=== PATIENT | female | born 1950 | race Caucasian/White ===

== ENCOUNTER → 2018-03-01 | Outpatient (CLI) | payer MEDICARE ==
--- NOTE | 2018-03-01 11:49 | FL ---
EXAMINATION TYPE: FL barium swallow w video DATE OF EXAM: 03/01/2018 MODIFIED SWALLOW / DEGLUTITION STUDY CLINICAL HISTORY: Dysphagia. TECHNIQUE: Deglutition study is performed utilizing thin liquid barium, honey and nectar thick liqui d barium, barium thick applesauce, and barium coated cracker. 0 images saved as the exam was video re corded. 52 seconds of fluoroscopy time was utilized. COMPARISON: None. FINDINGS: The oral and pharyngeal phases show satisfactory initiation and propagation with all modali ties tested. Normal mastication is seen with solid modalities tested. Transient penetration is seen with the thin liquid barium consistency when the patient utilizes a straw only with multiple continuo us swallows. Otherwise there is no evidence of penetration or aspiration with any modality tested. N o significant pharyngeal residue was appreciated. IMPRESSION: Transient penetration with the usage of a straw and multiple contiguous swallows, otherwi se unremarkable deglutition study. Please refer to speech therapist notes for further details if nec essary.
== END ==
LOC: RADFLMAIN 10:56
PROVIDERS: ATTEND Otolaryngology
DX: R13.10 Dysphagia, unspecified (principal)
CPT/HCPCS: 74230

== ENCOUNTER → 2021-01-14 | Outpatient (CLI) | payer MEDICARE ==
--- NOTE | 2021-01-14 16:19 | CT ---
EXAMINATION TYPE: CT chest w con DATE OF EXAM: 01/14/2021 COMPARISON: Radiograph 12/07/2020 HISTORY: 70-year-old female R91.8, Previous abnormal exam/lung horton. Hx COPD. TECHNIQUE: Contiguous axial scanning of the chest after the administration of 100 mL of Isovue 300. Coronal/sagittal reconstructions performed. CT DLP: 246.10mGycm. Automatic exposure control utilized for a dose reduction. FINDINGS: There is a heterogeneous 1.9 cm left thyroid isthmic nodule which warrants thyroid ultrasound to furt her evaluate. Suspect a 1.4 cm cystic nodule of the left lobe of the thyroid gland. Tiny 6 mm nodule 6:00 right breast, axial image 28 can be correlated with patient's routine mammogram s. Heart normal size without pericardial effusion. Aorta normal caliber with mild atherosclerotic arch calcifications and conventional arch vessel branc meredith anatomy. Mildly enlarged caliber to the main right and left pulmonary arteries measuring up to 2.6 cm. Calcified lower right paratracheal lymph node compatible with prior granulomatous disease. No thoraci c lymphadenopathy by CT size criteria. There is advanced centrilobular emphysema. Strandy bibasilar scarring/atelectasis is noted without co nsolidation or pleural effusion. Visualized upper abdomen shows slight increased attenuation of the liver that may represent mild fatt y infiltration. Benign 1.4 cm mid hepatic cyst. Bones: Scattered small endplate Schmorl's nodes mid to lower thoracic spine and upper lumbar spine. IMPRESSION: 1. COPD with advanced emphysema and pulmonary arterial hypertension. 2. Basilar opacities have strandy configurations suggesting areas of atelectasis and/or scarring. 3. Dedicated thyroid ultrasound recommended to assess a 1.9 cm left thyroid isthmic nodule and determ ine the need for FNA. 4. Tiny 6 mm nodule within the 6:00 position of the right breast is nonspecific. It routine screening mammograms are not being performed, diagnostic mammogram is recommended.
== END | disposition home or self-care (01) ==
LOC: RADCTMAIN 13:33
PROVIDERS: ATTEND Internal Medicine Critical Care Medicine
DX: J43.9 Emphysema, unspecified (principal); I27.21 Secondary pulmonary arterial hypertension; R91.8 Other nonspecific abnormal finding of lung field; N63.15 Unspecified lump in the right breast, overlapping quadrants
CPT/HCPCS: 82565; 84520; 71260; 36415; Q9967

== ENCOUNTER → 2021-01-23 | Outpatient (CLI) | payer MEDICARE, OTHER ==
[2021-01-23 17:22] LABS: ABG Base Excess 8.3 mmol/L; ABG HCO3 33 mmol/L (21-25); ABG Oxygen Saturation 85.9 % (94-97); ABG PCO2 52 mmHg (35-45); ABG PH 7.41 (7.35-7.45); ABG TCO2 35 mmol/L (19-24); Allen Test Performed? Yes
[2021-01-23 17:24] LABS: ABG PO2 48 mmHg (83-108)
== END | disposition home or self-care (01) ==
LOC: LABWHC1 16:27
PROVIDERS: ATTEND Internal Medicine Critical Care Medicine
DX: J44.9 Chronic obstructive pulmonary disease, unspecified (principal)
CPT/HCPCS: 36600; 82805

== ENCOUNTER → 2021-02-18 | Outpatient (CLI) | payer MEDICARE, OTHER ==
--- NOTE | 2021-02-18 15:03 | US ---
EXAMINATION TYPE: US thyroid st tissue head/neck DATE OF EXAM: 02/18/2021 COMPARISON: CT chest 01/14/2021 CLINICAL HISTORY: 70-year-old female R22.0 swelling/mass/palpable abnormality head/neck. Left thyroid nodule seen on recent CT GLAND SIZE: Right Lobe: 5.4 x 1.8 x 1.8 cm Overall Parenchyma: heterogenous Left Lobe: 4.7 x 1.7 x 1.5 cm Overall Parenchyma: heterogeneous Isthmus Thickness: 0.3 cm NODULES RIGHT: # of nodules measured on right: 0 LEFT: # of nodules measured on left: 2 1. 2.0 X 1.3 x 2.2 cm, lower medial, mixed cystic and solid, hypoechoic nodule, which is wider than tall, with smooth margins, without echogenic foci. Prior size: no previous 2. 1.9 X 1.3 x 1.4 cm, lower lateral, cystic or almost completely cystic, anechoic nodule, which i s wider than tall, with smooth margins, without echogenic foci. Prior size: no previous ISTHMUS: # of nodules measured in the isthmus: 0 Bilateral neck scanned, no evidence of lymphadenopathy. Multiple bilateral nodules with largest described above. IMPRESSION: 1. A mixed solid cystic TR3 nodule medial left lobe measuring up to 2.2 cm. Follow-up is recommended. FNA should be performed if the nodule reaches 2.5 cm. 2. There is a second nodule measuring 1.9 cm on the left, laterally, which is primarily cystic. Some mild internal complexity is present with thin septations.
== END | disposition home or self-care (01) ==
LOC: RADUSWWP 13:47
PROVIDERS: ATTEND Internal Medicine Critical Care Medicine
DX: E04.2 Nontoxic multinodular goiter (principal)
CPT/HCPCS: 76536

== ENCOUNTER → 2021-05-03 | Outpatient (CLI) | payer MEDICARE, OTHER ==
--- NOTE | 2021-05-03 13:45 | US ---
EXAMINATION TYPE: US thyroid st tissue head/neck DATE OF EXAM: 05/03/2021 COMPARISON: 02/18/21 CLINICAL HISTORY: E04.1 Thyroid Nodule. GLAND SIZE: Right Lobe: 5.6x2.2x cm Overall Parenchyma: homogenous Left Lobe: 5.8x1.9x1.6 cm Overall Parenchyma: homogeneous Isthmus Thickness: 0.6 cm NODULES RIGHT: # of nodules measured on right: 0 LEFT: # of nodules measured on left: 4 1. 1.2 X 1.0 x 0.7 cm, upper mid, solid or almost completely solid, hypoechoic nodule, which is ranulfo ler than wide, with smooth margins, with echogenic foci. Prior size: None. 2. 0.7 X 0.5 x 0.6 cm, mid mid, solid or almost completely solid, hypoechoic nodule, which is wide r than tall, with ill-defined margins, without echogenic foci. Prior size: None. 3. 2.1 X 1.1 x 1.4 cm, lower lateral, cystic or almost completely cystic, anechoic nodule, which is wider than tall, with smooth margins, with echogenic foci. Prior size: 1.9 x 1.3 x .14 cm 4. 2.6 X 1.3 x 2.0 cm, lower medial, mixed cystic and solid, isoechoic nodule, which is wider than tall, with smooth margins, with echogenic foci. Prior size: 2.2 x 1.3 x 1.3 cm ISTHMUS: Measures 0.6 cm Bilateral neck scanned, no evidence of lymphadenopathy. Multiple small nodules <5mm ? Parathyroid cyst posterior right thyroid. 2.7x0.8x1.2cm IMPRESSION: Multinodular thyroid changes with incremental increase in size of multiple nodules as discussed above . 1.2 cm Left thyroid nodule has the highest TI-RADS LEVEL 2017 ACR TI-RADS LEVEL: TI-RADS 5 - Highly Suspicious: Follow if > 0.5 cm, FNA if > 1.0 cm *Highest TI-RADS level nodule reported
== END | disposition home or self-care (01) ==
LOC: RADUSWWP 10:07
PROVIDERS: ATTEND Internal Medicine Critical Care Medicine
DX: E04.2 Nontoxic multinodular goiter (principal)
CPT/HCPCS: 76536

== ENCOUNTER → 2021-05-14 | Outpatient (CLI) | payer MEDICARE, OTHER ==
--- NOTE | 2021-05-14 10:03 | CT ---
EXAMINATION TYPE: CT chest wo con DATE OF EXAM: 05/14/2021 COMPARISON: CT chest 01/14/2021 HISTORY: COPD CT DLP: 609.70 mGycm. Automated Exposure Control for Dose Reduction was Utilized. TECHNIQUE: CT scan of the thorax is performed without IV contrast. FINDINGS: LUNGS: The lungs are stable, there is extensive centrilobular emphysematous change within the lungs. There may be some atelectatic change along anterior aspect of the right middle lobe, axial image #[id number] 8 There is no pleural effusion or pneumothorax seen. The tracheobronchial tree is patent. MEDIASTINUM: Lack of IV contrast is noted to limit evaluation for mediastinal and especially hilar ad enopathy. There are no definitive greater than 1 cm hilar or mediastinal lymph nodes. No cardiomega ly or pericardial effusion is seen. OTHER: Low dense focus within the right lobe of the liver is stable and statistically is likely to re present a cyst. No other significant interval changes IMPRESSION: Findings similar to prior exam. Extensive centrilobular emphysematous change. Noncontrast exam.
== END | disposition home or self-care (01) ==
LOC: RADCTMAIN 08:05
PROVIDERS: ATTEND Internal Medicine Critical Care Medicine
DX: J44.9 Chronic obstructive pulmonary disease, unspecified (principal)
CPT/HCPCS: 71250

== ENCOUNTER → 2022-03-03 | Outpatient (CLI) | payer MEDICARE | END | disposition home or self-care (01) | LOC: RADUSWWP 16:16 | PROVIDERS: ATTEND Internal Medicine Endocrinology, Diabetes & Metabolism | DX: Z53.9 Procedure and treatment not carried out, unspecified reason (principal) ==

== ENCOUNTER → 2022-03-07 | Outpatient (CLI) | payer MEDICARE ==
[2022-03-07 14:08] LABS: INR 0.9 (<1.2); Partial Thromboplastin Time 24.8 sec (22.0-30.0); Prothrombin Time 10.4 sec (9.0-12.0)
--- NOTE | 2022-03-07 15:27 | US ---
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 GLAND SIZE: Right Lobe: 5.0 x 2.0 x 1.5 cm Overall Parenchyma: homogenous Left Lobe: 5.1 x 1.7 x 1.5 cm Overall Parenchyma: homogeneous Isthmus Thickness: 0.3 cm NODULES RIGHT: # of nodules measured on right: 2 1. 2.7 X 0.7 x 1.8 cm, upper lateral, cystic or almost completely cystic, anechoic nodule, which is wider than tall, with smooth margins, without echogenic foci. Prior size: 2.7 x 0.8 x 1.2 cm 2. 0.5 X 0.3 x 0.5 cm, upper mid, solid or almost completely solid, hypoechoic nodule, which is wid er than tall, with smooth margins, without echogenic foci. Prior size: 0.4 x 0.3 x 0.4 cm LEFT: # of nodules measured on left: 2 1. 1.3 X 1.0 x 0.9 cm, upper mid, solid or almost completely solid, very hypoechoic nodule, which i s wider than tall, with smooth margins, without echogenic foci. Prior size: 1.2 x 1.0 x 0.7 cm 2. 1.6 X 0.9 x 1.1 cm, lower mid, cystic or almost completely cystic, anechoic nodule, which is wi emi than tall, with smooth margins, without echogenic foci. Prior size: 2.1 x 1.1 x 1.4 cm ISTHMUS: # of nodules measured in the isthmus: 1 1. 1.7 X 1.2 x 1.7 cm mixed cystic and solid, hypoechoic nodule, which is wider than tall, with smo oth margins, without echogenic foci. Prior size: 2.6 x 1.3 x 1.9 cm Bilateral neck scanned, no evidence of lymphadenopathy. There are multiple other subcenter nodules noted bilaterally. IMPRESSION: Nonspecific thyroid nodularity as noted above.
[2022-03-07 20:58] LABS: Basophils # (A) 0.06 X 10*3/uL (0.00-0.10); Basophils % (A) 0.9 %; Eosinophils # (A) 0.26 X 10*3/uL (0.04-0.35); Eosinophils % (A) 3.9 %; HCT 44.3 % (37.2-46.3); Immature Grans, Automated 0.3 %; Immature Platelet Fraction 33.9 % (1.1-6.1); Lymphocytes # (A) 1.17 X 10*3/uL (0.90-5.00); Lymphocytes % (A) 17.5 %; MCH 29.6 pg (27.0-32.0); MCHC 31.6 g/dL (32.0-37.0); MCV 93.7 fL (80.0-97.0); Monocytes # (A) 0.62 X 10*3/uL (0.20-1.00); Monocytes % (A) 9.3 %; NRBC Per 100 WBC 0 /100 WBCS (0.0-0.0); Neutrophils # (A) 4.57 X 10*3/uL (1.80-7.70); Neutrophils % (A) 68.1 %; Platelet Count 31 X 10*3/uL (140-440); RBC 4.73 X 10*6/uL (4.10-5.20); RBC Morphology NORMAL; RDW 13.3 % (11.5-14.5)
== END | disposition home or self-care (01) ==
LOC: LABWHC1 13:22
PROVIDERS: ATTEND Internal Medicine Endocrinology, Diabetes & Metabolism
DX: E04.2 Nontoxic multinodular goiter (principal); T14.8XXA Other injury of unspecified body region, initial encounter; Y99.9 Unspecified external cause status
CPT/HCPCS: 36415; 76536; 84443; 85025; 85610; 85730

== ENCOUNTER → 2023-03-11 | Outpatient (CLI) | payer MEDICARE ==
--- NOTE | 2023-03-11 14:43 | CTL ---
EXAMINATION TYPE: CT Low Dose Lung DATE OF EXAM ORDERED: 03/11/2023 COMPARISON: 05/14/2021 HISTORY: . Low Dose CT Lung Screening CT DLP: 84.[address] CTDI: 2.3 mGy IV CONTRAST USED: None. SCREENING VISIT: Second COMPARISON: None. TECHNIQUE: Low dose computed tomography scan was performed through the chest at 1 millimeter thick se ctions and reconstructed images in the coronal plane at [address] DIAGNOSTIC QUALITY: Satisfactory FINDINGS: LUNG NODULES: Stable nodular density right upper lobe laterally image 161 sequence 4 measuring 5.5 mm . LUNGS: COPD: Severity: Severe. There is severe centrilobular emphysema noted greatest in the mid and upper lung horton. Fibrosis: Severity:None Lymph nodes: None Other findings: None RIGHT PLEURAL SPACE: Effusion: None Calcification: None Thickening: None Pneumothorax: None LEFT PLEURAL SPACE: Effusion: None Calcification: None Thickening: None Pneumothorax: None HEART: Heart Size: Mildly enlarged Coronary calcification: Mild Pericardial effusion: None OTHER FINDINGS: Upper abdomen: No significant abnormality Bony thorax: Degenerative changes Supraclavicular region: No significant abnormalityOther: No significant abnormalityI IMPRESSION: 1. Stable nodular density right upper lobe. 2. No new nodules. 3. Centrilobular emphysema. FOLLOW UP CT CHEST RECOMMENDATION: Follow-up screening in one year CT LUNG RAD: LUNG RAD CATEGORY 2 benign appearance and/or behavior.
== END | disposition home or self-care (01) ==
LOC: RADCTMAIN 14:02
PROVIDERS: ATTEND Internal Medicine Critical Care Medicine
DX: Z12.2 Encounter for screening for malignant neoplasm of respiratory organs (principal); J43.2 Centrilobular emphysema; R91.1 Solitary pulmonary nodule; Z87.891 Personal history of nicotine dependence
CPT/HCPCS: 71271

== ENCOUNTER → 2023-05-01 | Outpatient (CLI) | payer MEDICARE ==
[2023-05-01 21:12] LABS: T4, Free (Free Thyroxine) 1.06 ng/dL (0.80-1.80)
== END | disposition home or self-care (01) ==
LOC: LABWHC1 14:09
PROVIDERS: ATTEND Internal Medicine Endocrinology, Diabetes & Metabolism
DX: E04.2 Nontoxic multinodular goiter (principal)
CPT/HCPCS: 36415; 84439; 84443

== ENCOUNTER → 2023-10-01 | Outpatient (CLI) | payer MEDICARE ==
--- NOTE | 2023-10-01 14:43 | US ---
EXAMINATION TYPE: US thyroid st tissue head/neck DATE OF EXAM: 10/01/2023 COMPARISON: US CLINICAL INDICATION: Female, 73 years old with history of E04.2 NONTOXIC MULTINODULAR GOITER; Goiter, F/U, pt also states palpable lump right neck just below ear x 2 weeks GLAND SIZE: Right Lobe: 5.4 x 2.3 x 2.0 cm Overall Parenchyma: heterogenous Left Lobe: 5.3 x 1.8 x 1.5 cm Overall Parenchyma: heterogenous Isthmus Thickness: 0.4 cm NODULES RIGHT: # of nodules measured on right: 2 1. 2.9 X 1.1 x 1.4 cm, mid, cystic or almost completely cystic, anechoic nodule, which is wider kayley n tall, with smooth margins, without echogenic foci. Prior size: 2.8 x 0.9 x 2.0 cm 2. 0.6 X 0.6 x 0.6 cm, mid, solid or almost completely solid, hypoechoic nodule, which is wider kayley n tall, with smooth margins, without echogenic foci. Prior size: 0.6 x 0.6 x 0.6 cm LEFT: # of nodules measured on left: 3 1. 1.2 X 1.1 x 0.8 cm, upper , solid or almost completely solid, hypoechoic nodule, which is wider than tall, with smooth margins, with echogenic foci. Prior size: 1.5 x 1.0 x 1.0 cm 2. 1.5 X 0.8 x 1.0 cm, lower, cystic or almost completely cystic, anechoic nodule, which is wider than tall, with smooth margins, without echogenic foci. Prior size: 1.5 x 0.8 x 1.0 cm 3. 0.6 X 0.4 x 0.6 cm, mid, solid or almost completely solid, hypoechoic nodule, which is wider kayley n tall, with smooth margins, without echogenic foci. Prior size: 0.5 cm ISTHMUS: # of nodules measured in the isthmus: 1 1. 1.5 X 0.9 x 1.6 cm solid or almost completely solid, hypoechoic nodule, which is wider than tall , with smooth margins, without echogenic foci. Prior size: 1.5 x 0.9 x 1.8 cm Bilateral neck scanned, no evidence of lymphadenopathy. Stable nodules bilaterally. In area of pt's p alpable lump near right parotid gland there is a hypoechoic, solid, vascular lesion= 2.3 x 1.6 x 2.3 cm IMPRESSION: Moderately Suspicious: FNA if ? 1.5 cm; Follow if ? 1 cm at 1, 2, 3, and 5 y 2017 ACR TI-RADS LEVEL: TR4 *Highest TI-RADS level nodule reported
== END | disposition home or self-care (01) ==
LOC: RADUSWWP 13:46
PROVIDERS: ATTEND Internal Medicine Endocrinology, Diabetes & Metabolism
DX: E04.2 Nontoxic multinodular goiter (principal)
CPT/HCPCS: 76536

== ENCOUNTER → 2024-02-09 | Outpatient (CLI) | payer MEDICARE ==
[2024-02-09 12:35] LABS: African American GFR (CKD) 89 (>60 ml/min/1.73 sqM); Blood Urea Nitrogen 19 mg/dL (7-17); Non-African American GFR(CKD) 77 (>60 ml/min/1.73 sqM)
--- NOTE | 2024-02-09 13:18 | CT ---
EXAMINATION TYPE: CT soft tissue neck w con DATE OF EXAM: 02/09/2024 COMPARISON: None HISTORY: lump/ mass on rt side of neck (marked by a BB). CT DLP: 360.20 mGycm CONTRAST: CT scan of the neck is performed with IV Contrast, patient injected with 100ml mL of Isovue 300. Contrast enhanced CT of the neck was performed from the skull base through the lung apices. AIRWAY: The supraglottic, glottic, and subglottic portions of the airway appear patent and free of mass. SALIVARY GLANDS: Solitary well-circumscribed mass of the right parotid gland at the site of clinical concern within the deep parotid gland measuring 3.0 x 2.5 cm. Differential diagnostic possibilities i nclude pleomorphic adenoma, Wharthin tumor as well as other benign lesions. Malignant mucoid epidermo id carcinoma is not excluded. Correlate clinically. The left parotid gland is free of mass lesion. Th e submandibular glands are free of mass or inflammatory process. THYROID GLAND: Subcentimeter cystic nodules noted. LYMPH NODES: No adenopathy seen greater than 1cm. LUNG APICES: No nodule or mass is seen. OTHER: Vascular structures are patent. No significant degenerative change of the cervical spine. N o abscess seen. IMPRESSION: Solitary well-circumscribed mass of the right parotid gland at the site of clinical concern within th e deep parotid gland measuring 3.0 x 2.5 cm. Differential diagnostic possibilities included above.
== END | disposition home or self-care (01) ==
LOC: RADCTMAIN 11:35
PROVIDERS: ATTEND Otolaryngology
DX: R22.1 Localized swelling, mass and lump, neck (principal)
CPT/HCPCS: 82565; 84520; 70491; 36415; Q9967

== ENCOUNTER 2024-02-26 08:55 | Day surgery (SDC) | payer MEDICARE ==
[2024-02-26 09:26] VITALS: RESP 18; TEMP 97.7
--- NOTE | 2024-02-26 10:20 | US ---
EXAMINATION TYPE: US biopsy parotid gland DATE OF EXAM: 02/26/2024 10:01 AM CLINICAL INDICATION:Female, 73 years old with history of R22.1 LOCALIZED SWELLING, MASS AND LUMP, NEC K; , COMPARISON: 02/09/2024 ATTENDING: Dr. Stephen Moise PROCEDURE: Informed consent was obtained. The risks and benefits of the procedure were discussed with the patien t. The site was marked. Timeout procedure was performed Ultrasound imaging demonstrates right parotid mass The patient was prepped, draped in the usual sterile fashion, and locally anesthetized with 1% lidoca ine. 2 x 18-gauge core needle biopsies were obtained.. Samples were sent to the pathology department for further analysis. Patient tolerated the procedure without incident and was sent home in stable c ondition. IMPRESSION: Successful ultrasound guided core biopsy of the right parotid mass.
[2024-02-26 10:57] VITALS: BP 101/52; PULSE 77
== END 2024-02-26 10:30 | disposition home or self-care (01) ==
LOC: RADPROMAIN 08:55
PROVIDERS: ATTEND Otolaryngology
DX: R22.1 Localized swelling, mass and lump, neck (principal)
CPT/HCPCS: 42400; 76942; 88305

== ENCOUNTER → 2024-04-11 | Outpatient (CLI) | payer MEDICARE ==
--- NOTE | 2024-04-12 12:21 | CTL ---
EXAMINATION TYPE: CT Low Dose Lung DATE OF EXAM ORDERED: 04/11/2024 HISTORY: 73-year-old female former smoker with 50 pack-year history. Z12.2 LUNG CA SCR Z87.891 FORMER SMOKER. Lung cancer screening CT DLP: 95.[address] CTDI: 2.6 mGy Automated exposure control for dose reduction was used. SCREENING VISIT: Annual follow-up COMPARISON: 03/11/2023 TECHNIQUE: Low dose computed tomography scan was performed through the chest at 1 mm thick sections a nd reconstructed images in multiple planes at 1 mm and [address] DIAGNOSTIC QUALITY: Satisfactory FINDINGS: The heart is normal size without pericardial effusion. Aorta normal caliber with mild atherosclerotic arch calcifications and conventional petrosal branchin g anatomy. A few nonenlarged mediastinal lymph nodes are present. No thoracic lymphadenopathy by CT size criteri a. Borderline caliber main right and left pulmonary arteries measuring up to 2.5 cm may reflect underlyi ng pulmonary hypertension. There is scattered mosaic attenuation with moderate to advanced upper lung predominant emphysema. Ext ensive new airspace disease and patchy opacity throughout the right midlung within the upper lobe. Th ere is seen to be some underlying centrally located bronchial stents. Possible new or increased endol uminal opacification within the lateral and posterior segment stents, axial image 143 and 148. Tiny 2 mm lateral left midlung pulmonary nodule, axial image 133 is unchanged. Otherwise, no pleural effusion. Visualized upper abdomen shows a tiny hiatal hernia and a similar 1.3 cm cyst anterior mid liver. Bones: Scattered mild degenerative disc disease throughout the thoracic spine. IMPRESSION: 1. LungRADS 4a, suspicious; suggestion of previous endobronchial stents at the right hilum with new e ndobronchial opacification centrally at the right lung particularly involving the posterior and later al stents. Findings may be due to mucoid impaction. Further bronchoscopic assessment as clinically in dicated. Otherwise, three-month follow-up low-dose CT chest to assess for clearance. 2. There is extensive airspace disease throughout the right midlung, likely postobstructive pneumonia . Clinically correlate. 3. COPD with moderate to advanced emphysema. CT LUNG RAD AND CT CHEST RECOMMENDATION: Lung-Rad 4A Suspicious: Follow-up 3 month LDCT or PET/CT may be used when there is a > 8 mm solid component. S Modifier (other clinically significant findings): None [facility], , 04/12/2024 12:18 PM
== END | disposition home or self-care (01) ==
LOC: RADCTMAIN 12:10
PROVIDERS: ATTEND Internal Medicine Critical Care Medicine
DX: Z12.2 Encounter for screening for malignant neoplasm of respiratory organs (principal); J43.9 Emphysema, unspecified; Z87.891 Personal history of nicotine dependence
CPT/HCPCS: 71271

== ENCOUNTER → 2024-09-27 | Outpatient (CLI) | payer MEDICARE ==
--- NOTE | 2024-09-27 14:08 | FL ---
EXAMINATION TYPE: FL barium swallow w video DATE OF EXAM: 09/27/2024 CLINICAL HISTORY: 74-year-old female R13.10, history of COPD and food sticking. Also, right-sided voc al fold paralysis. TECHNIQUE: Deglutition study is performed utilizing thin liquid barium, , barium thick pudding, and barium coated cracker. Total dose area product (DAP) in uGy*m?, mGy*cm? (or similar): 125 mGycm2. To ranulfo fluoroscopy time: 1 minute 37 seconds. One image submitted. COMPARISON: None. FINDINGS: The oral and pharyngeal phases show satisfactory initiation and propagation with all modali ties tested. There is transient penetration with thin liquids. No other penetration or aspiration wi th any modality tested. No significant pharyngeal residue was appreciated. IMPRESSION: Transient penetration with thin liquids. Otherwise, functional swallow. Please refer to [facility] therapist notes for further details if necessary. [facility], , 09/27/2024 2:05 PM
== END | disposition home or self-care (01) ==
LOC: RADFLMAIN 12:26
PROVIDERS: ATTEND Otolaryngology
DX: R13.10 Dysphagia, unspecified (principal)
CPT/HCPCS: 74230

== ENCOUNTER → 2024-10-14 | Outpatient (CLI) | payer MEDICARE ==
--- NOTE | 2024-10-14 15:26 | FL ---
EXAMINATION TYPE: FL barium swallow DATE OF EXAM: 10/14/2024 COMPARISON: NONE CLINICAL INDICATION: Female, 74 years old with history of R13.10 DYSPHAGIA, feels food and occasional liquids getting caught lower cervical level proximal esophagus. TECHNIQUE: A double contrast esophagram is performed utilizing air and barium. A total of 24 second s of fluoroscopic time was utilized during procedure and 44 images obtained. TOTAL DAP = not availabl e on this fluoro unit. FINDINGS: The esophagus shows adequate motility and emptying into the stomach. No evidence of fixed hiatal hernia or stricture noted. No intraluminal mass. No significant gastroesophageal reflux was se en during real time performance of this study. IMPRESSION: No significant abnormality is seen to account for patient's symptoms. [facility], , 10/14/2024 3:24 PM
== END | disposition home or self-care (01) ==
LOC: RADFLMAIN 14:52
PROVIDERS: ATTEND Otolaryngology
DX: R13.10 Dysphagia, unspecified (principal)
CPT/HCPCS: 74220

== ENCOUNTER 2024-11-16 21:55 | Emergency (ER) | payer MEDICARE ==
--- NOTE | 2024-11-16 23:47 | ED ---
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 Pt states that she recently took a trip with her family and was using marijuana gummies while vacationing. She states the gummies she was using were stronger than what she is used to, which made her trip and fall, causing her to hit her head. Denies LOC. Is not on blood thinners. Sustained a bruise to the right side of her face. She has since been able to ambulate after the fall. Currently denies FERREIRA, sudden changes in vision, new focal numbness or weakness, dizziness or confusion. Notes she also injured her arm when she fell. She presents with her granddaughter who wanted to bring the pt in to get checked over and ensure there was no serious injury to the pt's head. - Related Data Home Medications Medication Instructions Recorded Confirmed Albuterol Sulfate [Ventolin HFA] 1 - 2 puff INHALATION Q6H PRN 02/17/24 02/26/24 Ascorbic Acid [Vitamin C] 250 mg PO DAILY 02/17/24 02/26/24 Baclofen 10 mg PO BID 02/17/24 02/26/24 Cetirizine HCl [Zyrtec] 10 mg PO DAILY 02/17/24 02/26/24 Cholecalciferol (Vitamin D3) 75 mcg PO DAILY 02/17/24 02/26/24 [Vitamin D3 (3000 Iu)] Fluticasone Nasal Orr [Flonase 2 spray EA NOSTRIL DAILY 02/17/24 02/26/24 Nasal Orr] Fluticasone/Umeclidin/Vilanter 1 puff INHALATION DAILY 02/17/24 02/26/24 [Trelegy Ellipta 100-62.5-25] Gabapentin 300 mg PO BID 02/17/24 02/26/24 Hydrocodone/Acetaminophen 1 tab PO Q8H PRN 02/17/24 02/26/24 [Hydrocodone/Acetaminophen 7.5-325] Hydroxychloroquine Sulfate 200 mg PO BID 02/17/24 02/26/24 [Plaquenil] Magnesium Oxide [Mag-Oxide] 200 mg PO DAILY 02/17/24 02/26/24 Montelukast [Singulair] 10 mg PO HS 02/17/24 02/26/24 Multivitamin [Multivitamins Adult 1 each PO DAILY 02/17/24 02/26/24 Gummies] PARoxetine HCL [Paxil] 30 mg PO DAILY 02/17/24 02/26/24 Triamterene-Hctz 37.5-25Mg 0.5 cap PO DAILY 02/17/24 02/26/24 [Dyazide 37.5-25 Capsule] clonazePAM 2 mg PO HS 02/17/24 02/26/24 traZODone HCL 150 mg PO HS 02/17/24 02/26/24 Allergies Allergy/AdvReac Type Severity Reaction Status Date / Time No Known Allergies Allergy Verified 11/16/24 22:02 Review of Systems ROS Statement: Those systems with pertinent positive or pertinent negative responses have been documented in the HPI. ROS Other: All systems not noted in ROS Statement are negative. 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 Light purplegreen bruising along right oriental orthodox extending towards right cheekbone EYES: Pupils are equally round, extraocular movements intact without nystagmus, clear conjunctiva, non-icteric sclera HENT: Normocephalic, bruising as noted above, contusion to right scalp, moist mucus membranes, oropharynx clear without exudates NECK: , Full range of motion, normal appearance, no midline cervical neck tenderness or step-offs. The patient denies any numbess, tingling, or weakness of the extremities when moving neck through full ROM. The patient is able to range their neck completely without midline cervical pain, numbness, tingling or weakness. PULMONARY: Clear to auscultation without wheezes, rhonchi, or rales, normal excursion, no accessory muscle use and no stridor CARDIOVASCULAR: Regular rate, rhythm, normal S1 and S2. No appreciated murmurs, rubs or gallops. Strong radial pulses with intact distal perfusion. No lower extremity edema GASTROINTESTINAL: Soft, active bowel sounds throughout, non-tender, non- distended, no palpable masses, no rebound or guarding. No hepatosplenomegaly MUSCULOSKELETAL: Extremities have no gross deformity, no edema, redness, or swelling. No midline spinal tenderness palpation, mild tenderness palpation of the proximal right arm at approximately the level of the mid bicep, no clavicular tenderness, no bony tenderness to palpation of the shoulder, able to range extremity through full range of motion, 2+ radial pulse palpated NEUROLOGIC:_a/o x 3, GCS 15, normal mentation and speech. Moves all extremities x 4 without motor or sensory deficit PSYCHIATRIC:_normal mood and affect, thought process is clear and linear Limitations: no limitations Course Vital Signs 11/16/24 11/17/24 22:03 00:38 Temperature 98.0 F 98.2 F Pulse Rate 80 65 Respiratory 18 22 Rate Blood Pressure 106/70 109/79 O2 Sat by Pulse 85 L 92 L Oximetry Medical Decision Making - Medical Decision Making Was pt. sent in by a medical professional or institution (, PA, HALL MONITOR, urgent care, hospital, or [facility]...) When possible be specific @ -No Did you speak to anyone other than the patient for history (EMS, parent, family, police, friend...)? What history was obtained from this source @ -No Did you review nursing and triage notes (agree or disagree)? Why? @ -I reviewed and agree with nursing and triage notes Were old charts reviewed (outside hosp., previous admission, EMS record, old EKG, old radiological studies, urgent care reports/EKG's, [facility] records)? Report findings @ -Medical records reviewed Differential Diagnosis (chest pain, altered mental status, abdominal pain women, abdominal pain men, vaginal bleeding, weakness, fever, dyspnea, syncope, headache, dizziness, GI bleed, back pain, seizure, CVA, palpatations, mental health, musculoskeletal)? @Differential Musculoskeletal Muscular strain, contusion, facial fracture, skull fracture, concussion, traumatic brain injury ligament sprain, fracture, arthritis, septic arthritis, bursitis, cellulitis, muscle spasm, nerve compression... This is not meant to be in all inclusive list EKG interpreted by me (3pts min.). @ -As above X-rays interpreted by me (1pt min.). @Personally reviewed x-ray of the emergency evidence of fracture I agree with radiologist interpretation CT interpreted by me (1pt min.). I personally reviewed CT brain, C-spine and CT face, I see no evidence of fracture or malalignment, or intracranial bleeding I agree with radiologist interpretation U/S interpreted by me (1pt. min.). @ -None done What testing was considered but not performed or refused? (CT, X-rays, U/S, labs)? Why? @ -None What meds were considered but not given or refused? Why? @ -None Did you discuss the management of the patient with other professionals (professionals i.e. , PA, HALL MONITOR, lab, RT, psych nurse, social services, charger operator helper, teacher, administrative hearing officer, case preparer and liner)? Give summary @ -No Was smoking cessation discussed for >3mins.? @ -No Was critical care preformed (if so, how long)? @ -No Were there social determinants of health that impacted care today? How? (Homelessness, low income, unemployed, alcoholism, drug addiction, transportation, low edu. Level, literacy, decrease access to med. care, assisted, rehab)? @ -No Was there de-escalation of care discussed even if they declined (Discuss DNR or withdrawal of care, Hospice)? @ -No What co-morbidities impacted this encounter? (DM, HTN, Smoking, COPD, CAD, Cancer, CVA, ARF, Chemo, Hep., AIDS, mental health diagnosis, sleep apnea, morbid obesity)? @COPD Was patient admitted / discharged? Hospital course, mention meds given and route, prescriptions, significant lab abnormalities, going to OR and other pertinent info. @Discharged-this is a pleasant 74-year-old female history of COPD on home 3 L O2 not on blood thinners presenting about 3 days after a mechanical trip and fall and sustained bruising to the right side of her face. Of note pulse ox on arrival was 85% because patient's home O2 concentrator ran out of battery and route to the ER. Patient on my assessment, has 3 L O2 nasal cannula running with pulse ox in the 90s. Exam significant for bruising to the right side of her face. Mild tenderness palpation of the proximal mid right upper extremity. No midline spinal tenderness palpation. Patient has no focal neurologic deficits and is oriented x 4. Plan for CT brain, C-spine, max face and x-ray of the humerus. Patient was offered pain control but politely declined. Imaging was ultimately negative for acute process. I updated patient and granddaughter to findings and discussed plan for discharge home. Patient and granddaughter comfortable plan of care. Prior to discharge confirmed pt had working oxygen source for her ride home. In my medical judgment there is currently no evidence of an immediate life- threatening or surgical condition. Discharge is therefore indicated at this time. Discharge treatment instructions, follow up instructions, and appropriate emerg ency department return precautions were discussed with the patient and/or medical decision maker. Patient and/or medical decision maker expressed understanding of and agreed with the treatment plan, follow up instructions, and emergency department return precaution. All patient's and/or medical decision maker's questions were answered. The patient was instructed to return to the ED for any changes in symptoms, persistent symptoms, inability to obtain proper follow-up or for any further concerns. Patient received verbal and written instructions for this condition. Undiagnosed new problem with uncertain prognosis? @ -No Drug Therapy requiring intensive monitoring for toxicity (Heparin, Nitro, Insulin, Cardizem)? @ -No Were any procedures done? @ -No Diagnosis/symptom? Fall, contusion Acute, or Chronic, or Acute on Chronic? Acute Uncomplicated (without systemic symptoms) or Complicated (systemic symptoms)? Uncomplicated Side effects of treatment? @ -No Exacerbation, Progression, or Severe Exacerbation? @ -No Poses a threat to life or bodily function? How? (Chest pain, [place], [place], pneumonia, PE, COPD, DKA, ARF, appy, cholecystitis, CVA, Diverticulitis, Homicidal, Suicidal, threat to staff... and all critical care pts) @ -No Disposition Clinical Impression: Fall, Contusion Disposition: HOME SELF-CARE Condition: Good Instructions (If sedation given, give patient instructions): Fall Prevention (ED) Additional Instructions: Every disease is a spectrum and a small chance still exists that a serious condition could develop, for this reason, please monitor yourself closely for new, changing or worsening symptoms, confusion, new onset dizziness, changes in vision, slurred speech, numbness or weakness or strokelike symptoms, repetitive falls, fever, inability to tolerate/keep down fluids or your medications, inability to follow up with outpatient providers as instructed and should you experience these symptoms or should you have any further concerns for your wellbeing please return to the ED or call 911 immediately. PLEASE call your primary care physician as soon as possible to arrange / discuss plan for followup appointment. Appointment in the next 1-3 days is strongly encouraged if possible. PLEASE let us know here before you leave if there is anything further we can do to be of any assistance. Take care and feel Better! Is patient prescribed a controlled substance at d/c from ED?: No Referrals: Manuel Carey [Primary Care Provider] - 1-2 days
--- NOTE | 2024-11-16 23:50 | CT ---
EXAM: CT Head Without Intravenous Contrast CLINICAL HISTORY: ITS.REASON CT Reason: Trauma TECHNIQUE: Axial computed tomography images of the head/brain without intravenous contrast. CTDI is 25.8 mGy and DLP is 667.7 mGy-cm. This CT exam was performed using one or more of the following dose reduction techniques: automated exposure control, adjustment of the mA and/or kV according to patient size, and/or use of iterative reconstruction technique. COMPARISON: No relevant prior studies available. FINDINGS: Brain: Unremarkable. No significant white matter disease. No acute intracranial hemorrhage. Ventricles: Unremarkable. No ventriculomegaly. Bones/joints: Unremarkable. No acute fracture. Soft tissues: RIGHT temporal scalp soft tissue swelling. Sinuses: Unremarkable as visualized. No acute sinusitis. Mastoid air cells: Unremarkable as visualized. No mastoid effusion. IMPRESSION: 1. No acute intracranial hemorrhage. 2. RIGHT temporal scalp soft tissue swelling. EXAM: CT Cervical Spine Without Intravenous Contrast CLINICAL HISTORY: ITS.REASON CT Reason: Trauma TECHNIQUE: Axial computed tomography images of the cervical spine without intravenous contrast. CTDI is 7.3 mGy and DLP is 225.1 mGy-cm. This CT exam was performed using one or more of the following dose reduction techniques: automated exposure control, adjustment of the mA and/or kV according to patient size, and/or use of iterative reconstruction technique. COMPARISON: No relevant prior studies available. FINDINGS: The vertebral body heights are maintained. The craniocervical junction is intact. The atlanto-dens interval is maintained. The dens is intact. There is no spondylolisthesis. Multilevel cervical spondylosis and degenerative disc disease. Straightening of the cervical lordosis. The unenhanced neck soft tissues are grossly unremarkable. The visualized lung apices are grossly clear. IMPRESSION: No acute fracture or subluxation of the cervical spine.
--- NOTE | 2024-11-16 23:53 | CT ---
EXAM: CT Maxillofacial Without Intravenous Contrast CLINICAL HISTORY: ITS.REASON CT Reason: bruising hit right face TECHNIQUE: Axial computed tomography images of the face without intravenous contrast. CTDI is 7.3 mGy and DLP is 225.1 mGy-cm. This CT exam was performed using one or more of the following dose reduction techniques: automated exposure control, adjustment of the mA and/or kV according to patient size, and/or use of iterative reconstruction technique. COMPARISON: No relevant prior studies available. FINDINGS: The mandible is intact. Intact maxillary alveolus. No orbital floor fracture. The intraorbital contents are grossly unremarkable. Intact nasal bone, nasal septum, and maxillary spine. The zygomatic arches and pterygoid processes are intact. IMPRESSION: No facial bone fracture.
--- NOTE | 2024-11-17 00:12 | XR ---
EXAM: XR Right Humerus, 2 or More Views CLINICAL HISTORY: ITS.REASON XR Reason: fall mid right bicep pain TECHNIQUE: Frontal and lateral views of the right humerus. COMPARISON: No relevant prior studies available. FINDINGS: Bones/joints: Diffuse osseous demineralization. No acute fracture or subluxation. Soft tissues: Unremarkable. IMPRESSION: No acute fracture or subluxation.
[2024-11-17 00:43] VITALS: BP 109/79; PULSE 65; RESP 22; TEMP 98.2
== END 2024-11-17 00:54 | disposition home or self-care (01) ==
LOC: EC 21:55
DX: S00.03XA Contusion of scalp, initial encounter (principal); J44.9 Chronic obstructive pulmonary disease, unspecified; Z87.891 Personal history of nicotine dependence; W01.0XXA Fall on same level from slipping, tripping and stumbling without subsequent striking against object, initial encounter
CPT/HCPCS: 70450; 70486; 72125; 99284